=== PATIENT | female | born 1970 | race Caucasian/White ===

== ENCOUNTER → 2020-12-05 | Outpatient (CLI) | payer OTHER ==
--- NOTE | 2020-12-05 09:50 | Diagnostic Imaging Report ---
EXAMINATION: Left shoulder at 9:11 AM Three views were obtained. There are no prior studies available for comparison. There is an oblique essentially nondisplaced fracture of the tip of the distal left clavicle. There is healing callus formation about the fracture site and I suspect this injury is subacute in nature. If there are previous studies available, they would be helpful for comparison. There is no other fracture or acute bony abnormality noted. 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 The soft tissues are unremarkable. IMPRESSION: 1. There is a healing subacute essentially nondisplaced fracture of the distal tip of the left clavicle. If previous exams are available, they would be helpful for comparison. 2. There is no acute bony abnormality noted otherwise. Dictated by: Dictated on workstation # [id number]
== END ==
LOC: RAD FS 08:59
PROVIDERS: ATTEND Nurse Practitioner
DX: S42.035D Nondisplaced fracture of lateral end of left clavicle, subsequent encounter for fracture with routine healing (principal); X58.XXXD Exposure to other specified factors, subsequent encounter
CPT/HCPCS: 73030